=== PATIENT | male | born 1985 | race Caucasian/White ===

== ENCOUNTER 2017-11-16 13:25 | Emergency (ER) | payer OTHER ==
[~2017-11-16] VITALS: Ht 177.8 cm; Wt 81.7 kg
[2017-11-16] MEDS ORDERED: CEPH500 PO (16:16)
[2017-11-16] MEDS ORDERED: Naprosyn500 MG PO (16:18)
== END 2017-11-16 16:32 | disposition home or self-care (01) ==
LOC: ER 13:25
DX: S62.633B Displaced fracture of distal phalanx of left middle finger, initial encounter for open fracture (principal); S61.213A Laceration without foreign body of left middle finger without damage to nail, initial encounter; Z23 Encounter for immunization; W26.8XXA Contact with other sharp object(s), not elsewhere classified, initial encounter
CPT/HCPCS: 11760; 12002; 29130; 73140; 90471; 90714; 99283

== ENCOUNTER 2017-11-18 17:15 | Emergency (ER) | payer OTHER ==
[~2017-11-18] VITALS: Ht 177.8 cm; Wt 81.7 kg
[~2017-11-18 17:15] MED LIST: CEPH500 PO; Naprosyn500 MG PO
== END 2017-11-18 17:39 | disposition home or self-care (01) ==
LOC: ER 17:15
DX: S62.633D Displaced fracture of distal phalanx of left middle finger, subsequent encounter for fracture with routine healing (principal); S61.213D Laceration without foreign body of left middle finger without damage to nail, subsequent encounter; X58.XXXD Exposure to other specified factors, subsequent encounter; Z79.2 Long term (current) use of antibiotics
CPT/HCPCS: 99282

== ENCOUNTER 2019-01-03 19:42 | Emergency (ER) | payer OTHER ==
[~2019-01-03] VITALS: Ht 177.8 cm; Wt 83.9 kg
== END 2019-01-03 21:14 | disposition home or self-care (01) ==
LOC: ER 19:42
DX: M25.511 Pain in right shoulder (principal); F17.290 Nicotine dependence, other tobacco product, uncomplicated
CPT/HCPCS: 99283; A9270

== ENCOUNTER → 2023-04-22 | Outpatient (CLI) | payer OTHER | END | disposition home or self-care (01) | LOC: LAB SHORT 16:07 → LAB 16:07 | DX: A41.9 Sepsis, unspecified organism (principal) | CPT/HCPCS: 87070; 87075; 87077; 87147; 87186; 87205 ==

== ENCOUNTER → 2025-04-23 | Outpatient (CLI) | payer OTHER ==
[~2025-04-23] MED LIST changes: +SULTRIDS PO
== END | disposition home or self-care (01) ==
LOC: LAB 20:49 → LAB SHORT 20:49
DX: L02.91 Cutaneous abscess, unspecified (principal)
CPT/HCPCS: 87070; 87075; 87077; 87147; 87186; 87205

== ENCOUNTER 2025-04-24 16:14 | Emergency (ER) | payer OTHER ==
[~2025-04-24] VITALS: Ht 177.8 cm; Wt 81.7 kg
[~2025-04-24 16:14] MED LIST changes: -SULTRIDS PO
[2025-04-24] MEDS ORDERED: Ketorolac Tromethamine 15mg Vial IV ONE (16:45)
[2025-04-24 16:58] LABS: BASOPHILS ABSOLUTE AUTO 0.05 K/mm3 (0.00-0.23); BASOPHILS PERCENT AUTO 0 % (0-2); EOSINOPHILS ABSOLUTE AUTO 0.16 K/mm3 (0.00-0.68); EOSINOPHILS PERCENT AUTO 1 % (0-6); Hematocrit 41.8 % (37.0-53.0); Hemoglobin 14.6 g/dL (13.5-17.5); IMMATURE GRAN ABSOLUTE AUTO 0.03 K/mm3 (0.00-0.10); IMMATURE GRAN PERCENT AUTO 0 % (0-1); LYMPHOCYTES ABSOLUTE AUTO 2.48 K/mm3 (0.84-5.20); LYMPHOCYTES PERCENT AUTO 22 % (21-46); MONOCYTES ABSOLUTE AUTO 1.11 K/mm3 (0.16-1.47); MONOCYTES PERCENT AUTO 10 % (4-13); Mean Corpuscular HGB Conc 34.9 g/dL (31.5-36.5); Mean Corpuscular Volume 90 fL (80-100); NEUTROPHILS ABSOLUTE AUTO 7.67 K/mm3 (1.96-9.15); NEUTROPHILS PERCENT AUTO 67 % (41-73); NRBC ABSOLUTE 0.00 K/mm3 (0.00-0.02); NRBC Auto 0.0 /100 WBC (0.0-0.2); Platelet Count 183 K/mm3 (150-400); RDW Coefficient Variation 12.6 % (11.7-14.2); RDW Standard Deviation 41.6 fL (35.1-46.3)
[2025-04-24 17:20] LABS: Alanine Aminotransfer (ALT/SGP 46.0 U/L (12-78); Albumin, Blood 4.2 g/dL (3.4-5.0); Albumin/Globulin Ratio 1.4 (0.8-1.8); Anion Gap 8.0 mmol/L (3-11); Aspartate Aminotrans (AST/SGOT 22.0 U/L (12-37); Bilirubin, Total 0.5 mg/dL (0.1-1.0); Blood Urea Nitrogen 14.0 mg/dL (8-24); CO2, Blood 23.0 mmol/L (21-32); Calcium, Blood 8.7 mg/dL (8.5-10.1); Chloride, Blood 110.0 mmol/L (98-108); Creatinine, Blood 0.87 mg/dL (0.60-1.20); Globulin, Blood 3.1 g/dL (2.2-4.0); Glucose, Blood 93.0 mg/dL (70-99); Potassium, Blood 3.8 mmol/L (3.5-5.5); Sodium, Blood 137.0 mmol/L (136-145); Total Protein, Blood 7.3 g/dL (6.4-8.2)
[2025-04-24] MEDS ORDERED: FentaNYL Citrate 50 MCG/ML 2 ML Injection IV ONE (18:55)
[2025-04-24 19:00] VITALS: BP 135/99
[2025-04-24] MEDS ORDERED: SULTRIDS PO (20:13)
== END 2025-04-24 20:18 | disposition home or self-care (01) ==
LOC: ER 16:14
PROVIDERS: Student in an Organized Health Care Education/Training Program
DX: J34.0 Abscess, furuncle and carbuncle of nose (principal); D72.829 Elevated white blood cell count, unspecified
CPT/HCPCS: 10160; 70487; 80053; 85025; 96374; 96375; 99284-25; J1885; J3010; Q9967

== ENCOUNTER 2025-05-15 16:35 | Emergency (ER) | payer OTHER ==
[~2025-05-15] VITALS: Ht 177.8 cm; Wt 83.9 kg
[~2025-05-15 16:35] MED LIST changes: +SULTRIDS PO
[2025-05-15] MEDS ORDERED: Ondansetron HCl 2 MG / ML 2ML Vial IV ONE (17:00)
[2025-05-15 17:16] LABS: BASOPHILS ABSOLUTE AUTO 0.03 K/mm3 (0.00-0.23); BASOPHILS PERCENT AUTO 0 % (0-2); EOSINOPHILS ABSOLUTE AUTO 0.18 K/mm3 (0.00-0.68); EOSINOPHILS PERCENT AUTO 2 % (0-6); Hematocrit 43.0 % (37.0-53.0); Hemoglobin 15.2 g/dL (13.5-17.5); IMMATURE GRAN ABSOLUTE AUTO 0.04 K/mm3 (0.00-0.10); IMMATURE GRAN PERCENT AUTO 0 % (0-1); LYMPHOCYTES ABSOLUTE AUTO 3.36 K/mm3 (0.84-5.20); LYMPHOCYTES PERCENT AUTO 29 % (21-46); MONOCYTES ABSOLUTE AUTO 0.93 K/mm3 (0.16-1.47); MONOCYTES PERCENT AUTO 8 % (4-13); Mean Corpuscular HGB Conc 35.3 g/dL (31.5-36.5); Mean Corpuscular Volume 89 fL (80-100); NEUTROPHILS ABSOLUTE AUTO 7.09 K/mm3 (1.96-9.15); NEUTROPHILS PERCENT AUTO 61 % (41-73); NRBC ABSOLUTE 0.00 K/mm3 (0.00-0.02); NRBC Auto 0.0 /100 WBC (0.0-0.2); Platelet Count 211 K/mm3 (150-400); RDW Coefficient Variation 12.8 % (11.7-14.2); RDW Standard Deviation 41.6 fL (35.1-46.3)
[2025-05-15 17:37] LABS: Alanine Aminotransfer (ALT/SGP 63.0 U/L (12-78); Albumin, Blood 4.2 g/dL (3.4-5.0); Albumin/Globulin Ratio 1.2 (0.8-1.8); Anion Gap 12.0 mmol/L (3-11); Aspartate Aminotrans (AST/SGOT 42.0 U/L (12-37); Bilirubin, Total 0.5 mg/dL (0.1-1.0); Blood Urea Nitrogen 13.0 mg/dL (8-24); CO2, Blood 26.0 mmol/L (21-32); Calcium, Blood 8.8 mg/dL (8.5-10.1); Chloride, Blood 107.0 mmol/L (98-108); Creatinine, Blood 0.75 mg/dL (0.60-1.20); Globulin, Blood 3.6 g/dL (2.2-4.0); Glucose, Blood 93.0 mg/dL (70-99); Potassium, Blood 3.6 mmol/L (3.5-5.5); Sodium, Blood 141.0 mmol/L (136-145); Total Protein, Blood 7.8 g/dL (6.4-8.2)
[2025-05-15 19:00] VITALS: BP 118/87
[2025-05-15] MEDS ORDERED: RX Prepack 6 Tabs Oxycodone 5mg UD ONE (19:15)
[2025-05-15] MEDS ORDERED: RX Prepack 2 Tabs Ondansetron ODT 4MG UD ONE (19:15)
== END 2025-05-15 19:00 | disposition home or self-care (01) ==
LOC: ER 16:35
PROVIDERS: Student in an Organized Health Care Education/Training Program
DX: S22.038A Other fracture of third thoracic vertebra, initial encounter for closed fracture (principal); S22.048A Other fracture of fourth thoracic vertebra, initial encounter for closed fracture; S09.90XA Unspecified injury of head, initial encounter; Z98.1 Arthrodesis status; W11.XXXA Fall on and from ladder, initial encounter
CPT/HCPCS: 70450; 71260; 72125; 74177; 80053; 85025; 96374-59; 99284-25; A9270; J2405; Q9967